=== PATIENT | female | born 1975 | race Two or more races ===

== ENCOUNTER → 2020-03-13 | Emergency (ER) | payer OTHER ==
[~2020-03-13] VITALS: Ht 152.4 cm; Wt 58.1 kg
[2020-03-13 12:22] VITALS: BP 138/93
--- NOTE | 2020-03-13 12:50 | NUR ---
Patient discharged to home in stable condition. Written and verbal after care instructions given. Patient verbalizes understanding of instruction. Pt ambulatory with a steady gait
--- NOTE | 2020-03-13 13:16 | NUR ---
UNABLE TO DEPART IN [facility]
== END | disposition home or self-care (01) ==
LOC: ER 12:20
DX: Z03.818 Encounter for observation for suspected exposure to other biological agents ruled out (principal)
CPT/HCPCS: 99283; U0003

== ENCOUNTER 2020-04-12 11:47 | Emergency (ER) | payer OTHER ==
--- NOTE | 2020-04-12 12:00 | NUR ---
THE PATIENT REFUSED TRIAGE; SHE WILL COME BACK LATER
== END 2020-04-12 12:35 | disposition home or self-care (01) ==
LOC: ER 11:51
DX: Z53.21 Procedure and treatment not carried out due to patient leaving prior to being seen by health care provider (principal)

== ENCOUNTER 2020-04-12 15:27 | Emergency (ER) | payer OTHER ==
[~2020-04-12] VITALS: Ht 165.1 cm; Wt 74.8 kg
[2020-04-12 15:34] VITALS: BP 145/81
--- NOTE | 2020-04-12 16:38 | NUR ---
Patient discharged to home in stable condition. Written and verbal after care instructions given. Patient verbalizes understanding of instruction.
== END 2020-04-12 16:38 | disposition home or self-care (01) ==
LOC: ER 15:29
DX: Z03.818 Encounter for observation for suspected exposure to other biological agents ruled out (principal)
CPT/HCPCS: 99283; C9803; U0003

== ENCOUNTER 2020-08-19 08:51 | Emergency (ER) | payer OTHER ==
[~2020-08-19] VITALS: Ht 152.4 cm; Wt 61.2 kg
[2020-08-19 08:59] VITALS: BP 121/78
== END 2020-08-19 09:28 | disposition home or self-care (01) ==
LOC: ER 08:53
DX: Z20.828 Contact with and (suspected) exposure to other viral communicable diseases (principal); Z88.2 Allergy status to sulfonamides
CPT/HCPCS: 99283; C9803; U0003

== ENCOUNTER 2021-06-17 09:06 | Emergency (ER) | payer OTHER ==
[~2021-06-17] VITALS: Ht 162.6 cm; Wt 52.2 kg
[2021-06-17 09:43] VITALS: BP 124/50
--- NOTE | 2021-06-17 09:56 | NUR ---
covid swab collected and sent to lab.
--- NOTE | 2021-06-17 09:59 | NUR ---
Patient discharged to home in stable condition. Written and verbal after care instructions given. Patient verbalizes understanding of instruction.
== END 2021-06-17 09:58 | disposition home or self-care (01) ==
LOC: ER 09:06
DX: R51.9 Headache, unspecified (principal); R11.0 Nausea; Z20.822 Contact with and (suspected) exposure to COVID-19; Z88.2 Allergy status to sulfonamides
CPT/HCPCS: 99283; C9803; U0003